=== PATIENT | male | born 1955 | race Caucasian/White ===

== ENCOUNTER → 2024-06-28 17:11 | Outpatient (REF) | payer MEDICARE, SELFPAY | LOC: MRI 3T 17:11 | PROVIDERS: ATTENDING PHYSICIAN Orthopaedic Surgery; FAMILY PHYSICIAN Family Medicine | DX: M25.511 Pain in right shoulder (principal) | CPT/HCPCS: 73221 ==

== ENCOUNTER 2024-09-07 06:15 | Day surgery (SDC) | payer MEDICARE, SELFPAY ==
[2024-08-24 07:49] VITALS: BMI 28.5
[2024-08-24 09:01] LABS: Hematocrit 46.2 % (39.0-52.0); Hemoglobin 15.5 g/dL (13.0-18.0); Mean Corp Hgb Conc. 33.5 g/dL (33.0-37.0); Mean Corpuscular Hgb 29.5 pg (27.0-31.0); Mean Platelet Volume 10.2 fL (7.4-10.4); Platelet Count 283 10^3/uL (130-400); Red Blood Cell Count 5.25 10^6/uL (4.70-6.10); Red Cell Dist. Width 12.4 % (11.5-14.5); White Blood Cell Count 7.6 10^3/uL (4.8-10.8)
[2024-08-24 09:44] LABS: Blood Urea Nitrogen 12 mg/dl (9-20); Calcium 9.4 mg/dl (8.4-10.2); Carbon Dioxide 31 mmol/L (22-30); Chloride 105 mmol/L (98-107); Estimated Creatinine Clearance 79 ml/min; Glucose 88 mg/dl (70-99); Potassium 5.1 mmol/L (3.5-5.1); Sodium 143 mmol/L (135-145); eGFR > 60.00
[2024-09-07] VITALS (9 sets, daily range): BP systolic 131–153; BP diastolic 73–88; BMI 28.5
[2024-09-07] MEDS: TYLENOL 1000 MG PO (07:31)
[2024-09-07] MEDS: NORMOSOL-R/PLASMALYTE-A 1000 IV (07:31)
[2024-09-07] MEDS: CELEBREX 200 MG PO (07:31)
== END 2024-09-07 12:21 | disposition home or self-care (01) ==
LOC: SDS 06:15
PROVIDERS: ATTENDING PHYSICIAN Orthopaedic Surgery; FAMILY PHYSICIAN Family Medicine
DX: M75.111 Incomplete rotator cuff tear or rupture of right shoulder, not specified as traumatic (principal); M19.011 Primary osteoarthritis, right shoulder; M75.41 Impingement syndrome of right shoulder
CPT/HCPCS: 29827; 36415; 80048; 85027; 93005; C1713